=== PATIENT | male | born 1950 | race Caucasian/White ===

== ENCOUNTER → 2024-07-15 | Outpatient (CLI) | payer MEDICARE ==
[2024-07-15 19:00] LABS: Hepatitis B Surface Antigen Nonreactive (Nonreactive); Hepatitis C IgG Antibody Nonreactive (Nonreactive)
[2024-07-15 21:52] LABS: HIV 2 AB Non-Reactive (Non-Reactive); HIV AB P24 Non-Reactive (Non-Reactive); HIV P24 AG Non-Reactive (Non-Reactive)
== END | disposition home or self-care (01) ==
LOC: LABWHC1 12:14
PROVIDERS: ATTEND Dermatology MOHS-Micrographic Surgery
DX: T14.8XXA Other injury of unspecified body region, initial encounter (principal)
CPT/HCPCS: 36415; 86803; 87340; 87390